=== PATIENT | female | born 1990 | race Caucasian/White ===

== ENCOUNTER 2017-06-20 07:38 | Emergency (ER) | payer OTHER ==
[~2017-06-20] VITALS: Ht 160 cm; Wt 94.3 kg
[2017-06-20 08:50] VITALS: BP 135/73
== END 2017-06-20 08:50 | disposition home or self-care (01) ==
LOC: ED 07:38
DX: R51 Headache (principal); R11.0 Nausea; R25.3 Fasciculation; J45.909 Unspecified asthma, uncomplicated; F12.90 Cannabis use, unspecified, uncomplicated
CPT/HCPCS: J1885